=== PATIENT | female | born 1960 | race Caucasian/White ===

== ENCOUNTER → 2018-05-18 12:29 | Outpatient (CLI) | payer OTHER, SELFPAY ==
--- NOTE | 2018-05-18 12:32 | DI.MG.S_ITS ---
BILATERAL DIGITAL SCREENING MAMMOGRAM 3D/2D WITH CAD: 05/18/2018 CLINICAL: Routine screening. Comparison is made to exams dated: 07/23/2014 mammogram, 09/19/2009 mammogram, and 10/31/2006 mammogram - [facility]. There are scattered fibroglandular elements in both breasts. Current study was also evaluated with a Computer Aided Detection (CAD) system. There is possible architectural distortion in the left breast middle depth upper region seen on the mediolateral oblique view only. Finding is best noted on tomographic L MLO slice 25. No other significant masses, calcifications, or other findings are seen in either breast. IMPRESSION: INCOMPLETE: NEEDS ADDITIONAL IMAGING EVALUATION The possible architectural distortion in the left breast is indeterminate. Additional views with possible ultrasound are recommended. This exam was interpreted at Station ID: [id number]. NOTE: For mammograms, a report in lay terms will be sent to the patient. Approximately 15% of breast malignancies will not be visualized mammographically. In the management of a palpable breast mass, a negative mammogram must not discourage biopsy of a clinically suspicious lesion. Electronically Signed By: David Alcaraz M.D. ecl/:05/19/2018 01:52:06 copy to: Nicci Naqvi letter sent: Additional Imaging Needed ACR BI-RADS Category 0: Incomplete 3340F
== END ==
PROVIDERS: PCP Family Medicine
DX: Z12.31 Encounter for screening mammogram for malignant neoplasm of breast (principal); M85.852 Other specified disorders of bone density and structure, left thigh; Z78.0 Asymptomatic menopausal state; Z82.62 Family history of osteoporosis
CPT/HCPCS: 77063; 77067; 77080

== ENCOUNTER → 2018-06-01 08:56 | Outpatient (CLI) | payer OTHER, SELFPAY ==
--- NOTE | 2018-06-01 | DI.MG.S_ITS ---
UNILATERAL LEFT DIGITAL DIAGNOSTIC MAMMOGRAM 3D/2D WITH ADDITIONAL VIEWS: 06/01/2018 CLINICAL: Additional evaluation requested from prior study. Comparison is made to exams dated: 05/18/2018 mammogram, 07/23/2014 mammogram, and 09/19/2009 mammogram - [facility]. There are scattered fibroglandular elements in left breast. There is 0.3 cm equal density asymmetry with an indistinct margin in the left breast middle depth superior region seen on the mediolateral oblique view only. This is less prominent. No other significant masses or calcifications are seen in the breast. IMPRESSION: INCOMPLETE: NEEDS ADDITIONAL IMAGING EVALUATION The 0.3 cm equal density asymmetry in the left breast is indeterminate. An ultrasound is recommended. This exam was interpreted at Station ID: [id number]. NOTE: For mammograms, a report in lay terms will be sent to the patient. Approximately 15% of breast malignancies will not be visualized mammographically. In the management of a palpable breast mass, a negative mammogram must not discourage biopsy of a clinically suspicious lesion. Electronically Signed By: Ketan monterroso/benita:06/01/2018 09:36:58 letter sent: Need Ultrasound ACR BI-RADS Category 0: Incomplete 3340F
--- NOTE | 2018-06-01 08:57 | DI.US.S_ITS ---
LIMITED ULTRASOUND OF LEFT BREAST: 06/01/2018 CLINICAL: Follow up from addtional views. Comparison is made to exams dated: 06/01/2018 mammogram, 05/18/2018 mammogram, and 07/23/2014 mammogram - [facility]. Real-time ultrasound of the left breast upper outer quadrant was performed on the area of interest. No abnormalities were seen sonographically in the left breast. IMPRESSION: NEGATIVE There is no sonographic evidence of malignancy. There is no abnormality seen in the left breast to correspond with the mammography finding in the upper outer quadrant. A 1 year screening mammogram is recommended.(06/02/2019) This exam was interpreted at Station ID: [id number]. Electronically Signed By: Ketan monterroso/benita:06/01/2018 17:24:35 copy to: Nicci Naqvi letter sent: Normal Exam Ultrasound BI-RADS: 1 Negative
== END ==
PROVIDERS: PCP Family Medicine; Visit Provider Family Medicine
DX: R92.8 Other abnormal and inconclusive findings on diagnostic imaging of breast (principal)
CPT/HCPCS: 76642; 77065; G0279

== ENCOUNTER 2018-06-19 08:17 | Day surgery (SDC) | payer OTHER, SELFPAY ==
--- NOTE | 2018-06-19 | PATH_ITS ---
[facility] Accession Number: [id number] . 01 Material submitted: . POLYP AT HEPATIC FLEXURE . 02 Diagnosis: Colon, Polyp at Hepatic Flexure, Biopsy: Colonic mucosa with mild surface hyperplastic-type changes and prominent thickened subepithelial collagen layer. Please see comment. Negative for granulomas, dysplasia and malignancy. MRV/06/21/2018 . 02 Comment: There is mild surface hyperplastic-type changes and additional deeper levels are examined. There is no evidence of dysplasia or serrated lesion. The polyp has a prominent subepithelial collagen layer which is abnormal. Although hyperplastic polyps sometimes show an abnormal subepithelial collagen layer, the appearance in this biopsy raises the consideration of collagenous colitis in the appropriate clinical and endoscopic setting. . 02 Electronically signed: . Priti Lozano MD, Pathologist NPI- [id number] . 01 Gross description: . Received in one formalin-filled container labeled with the patient's name and labeled polyp at hepatic flexure, are two 0.1-0.2 cm portions of tissue, entirely submitted. ([id number]) /FRR . 02 Pathologist provided ICD-10: K63.5 . 02 CPT . 308238 Specimen Comment: A duplicate report has been generated due to demographic updates. Performed at: 01 [facility] [address], [place], [place] [id number] MD Ketan Blandon MD Phone: [phone] Performed at: [address] [facility] [address] [place], [place] [id number] MD Dinesh Lagunas MD Phone: [phone]
[2018-06-19 08:50] VITALS: BP 96/64; PULSE 58; RESP 15; TEMP 36.3; O2SAT 99; BMI 21.6
[2018-06-19] MEDS: SODIUM CHLORIDE 0.9% 1,000 ML 200 ML IV (08:50)
--- NOTE | 2018-06-19 09:15 | P.HP_ITS ---
History of Present Illness Date Patient Seen: 06/19/18 Time Patient Seen: 09:13 Chief complaint: 43951 SCREENING COLONOSCOPY Narrative: 57-year-old female who presents for colorectal screening. She has never had any type of previous examination for such. She denies any recent gastrointestinal symptoms. No nausea, vomiting, abdominal pain, loss of appetite, unexplained weight loss, change in bowel habits, diarrhea, constipation, melena, hematochezia, or bright red blood per rectum. Patient History Medical History No significant past medical history (Acute) Surgical History History of third molar tooth extraction Status post loop electrosurgical excision procedure (LEEP) of cervix Family & Social History Family History: Reviewed 06/19/18 by Roly Greenwood MD Social History: household members spouse,children Tobacco & Substance use: Smoking Status Never smoker alcohol intake current alcohol intake frequency 0-2 drinks per day Meds Home Medications Medication Instructions Recorded Confirmed Type ibuprofen 200 mg PO Q6HP #0 06/15/12 01/03/18 History zoster vaccine live (PF) [Zostavax 0.5 ml SQ X1 #0.5 ml 12/28/16 Rx (PF)] Allergies Allergy/AdvReac Type Severity Reaction Status Date / Time No Known Drug Allergies Allergy Unknown Verified 01/03/18 10:42 Review of Systems Review of Systems All systems reviewed & are unremarkable except as noted in HPI and below Exam Vital Signs (past 8 hours): - 06/19/18 08:50 Temperature 97.3 F L Pulse Rate 58 L Respiratory Rate 15 Blood Pressure 96/64 Pulse Oximetry 99 Oxygen Delivery Method Room Air Narrative Exam Narrative: Well-nourished well-developed thin female in no acute distress resting comfortably on the gurney. Alert oriented x3. Sclera nonicteric Chest clear to auscultation bilaterally with regular rate and rhythm. No murmurs , gallops, rubs Abdomen soft, nondistended, nontender, no masses Extremities show no clubbing, cyanosis, or edema Objective Labs Labs: No recent radiographic or laboratory studies for review Assessment & Plan Plan: Assessment/Plan Narrative: 57-year-old female presenting for colorectal screening. I recommend colonoscopy. Technical details of the procedure were discussed. Risks, benefits, alternatives were explained. Risks including but not limited to sedation, aspiration, bleeding, pain, missed lesion, incomplete examination, need for further radiographic studies, colonic perforation, need for major abdominal surgery, and all attendant risks of major surgery were reviewed in detail. All questions were answered to her satisfaction, and she voiced understanding. Consent was placed on the chart. We will proceed as above.
--- NOTE | 2018-06-19 09:15 | PM.PREOP ---
Pre-operative Note Interval Note Pre-op Check: Yes History & Physical Reviewed by Physician, Yes Exam Performed and Yes History & Physical exam performed today by Physician Changes: No H&P completed within 30 days and has changed as indicated here:: Patient seen and examined today. History and physical examination documented and placed on the chart. Proceed with colonoscopy today as planned. ASA Class (for procedural sedation): I
[2018-06-19] MEDS: MIDAZOLAM 5 MG/5 ML VIAL IV (09:37)
[2018-06-19] MEDS: fentaNYL 250 MCG/5 ML INJ IV (09:38)
--- NOTE | 2018-06-19 09:44 | PM.OP.ENDO ---
Operative Date/Time/Diagnoses Date of procedure: 06/19/18 Time of procedure: 09:44 Pre-op diagnosis: Colorectal screening Post-op diagnosis: other (Colon polyp) Procedure & Clinicians Study performed: 1. Sedation per surgeon 2. Colonoscopy with hot snare polypectomy Same procedure as scheduled: Yes Indications: 57-year-old female requiring colorectal screening by age criteria. Colonoscopy is recommended. Surgeon: Roly Greenwood Procedure Notes SCOAP/Timeout: Yes Procedure in detail: After obtaining informed consent, the patient was brought to the GI suite and placed in the left lateral decubitus position on the examination table. After placement of appropriate monitors, the patient was given incremental doses of Versed and Fentanyl until an appropriate level of sedation was achieved. A time out was held per SCOAP protocol. A digital rectal examination was performed and did not reveal any masses or obstructing lesions. The colonoscope was gently passed into the patient's anus and the entire colon navigated to the level of the cecum with minimal difficulty. Terminal ileum was intubated and noted to be grossly normal. Once in the cecum, the scope was withdrawn being sure to go before and beyond all mucosal folds and prominences and get an excellent examination. The findings are noted above. At the level of the rectal vault, the scope was retroflexed and the internal anal canal was examined. The scope was straightened and air aspirated from the colon. The instrument was removed from the patient's body and the procedure was concluded. The patient was allowed to awaken from sedation without difficulty and taken to the post-anesthesia care unit in good condition. Scope withdrawal time: 12:35 min Sedation minutes: 25 Findings: polyp and other findings (Otherwise normal colon and rectum) Specimen(s): other (Hepatic flexure polyp) Complications: none Recommendations: Colonscopy in 5 years, High fiber diet and Will call with biopsy results Plan for aftercare: 1. Discharged home Follow up: as needed Disposition: PACU
[2018-06-19 09:49] VITALS: BP 82/52; PULSE 57; RESP 10; TEMP 36.2; O2SAT 99
[2018-06-19 09:54] VITALS: BP 84/57; PULSE 53; RESP 12; O2SAT 99
[2018-06-19 09:58] VITALS: BP 86/58; PULSE 61; RESP 13; O2SAT 100
[2018-06-19 10:12] VITALS: BP 94/63; PULSE 52; RESP 10; TEMP 36.4; O2SAT 100
== END 2018-06-19 10:46 | disposition home or self-care (01) ==
PROVIDERS: PCP Family Medicine; Visit Provider Surgery
PROC: 0DJD8ZZ Inspection of Lower Intestinal Tract, Via Natural or Artificial Opening Endoscopic (ICD-10-PCS; CPT 45378; principal; 2018-06-19 09:45)
DX: Z12.11 Encounter for screening for malignant neoplasm of colon (principal); K63.5 Polyp of colon
CPT/HCPCS: 45385; 99152; 99153; J2250; J3010

== ENCOUNTER → 2020-12-25 08:17 | Outpatient (CLI) | payer OTHER, SELFPAY ==
--- NOTE | 2020-12-25 | DI.MG.S_ITS ---
BILATERAL DIGITAL SCREENING MAMMOGRAM 3D/2D WITH CAD: 12/25/2020 CLINICAL: Routine screening. Comparison is made to exams dated: 05/18/2018 mammogram, 07/23/2014 mammogram, and 09/19/2009 mammogram - [facility]. There are scattered fibroglandular elements in both breasts. Current study was also evaluated with a Computer Aided Detection (CAD) system. No significant masses, calcifications, or other findings are seen in either breast. There has been no significant interval change. IMPRESSION: NEGATIVE There is no mammographic evidence of malignancy. A 1 year screening mammogram is recommended. This exam was interpreted at Station ID: [id number]. NOTE: For mammograms, a report in lay terms will be sent to the patient. Approximately 15% of breast malignancies will not be visualized mammographically. In the management of a palpable breast mass, a negative mammogram must not discourage biopsy of a clinically suspicious lesion. Electronically Signed By: Ray Do acr/benita:12/25/2020 10:09:28 letter sent: Normal Exam ACR BI-RADS Category 1: Negative 3341F
== END ==
PROVIDERS: PCP Internal Medicine; Referring Provider Internal Medicine; Visit Provider Internal Medicine
DX: Z12.31 Encounter for screening mammogram for malignant neoplasm of breast (principal)
CPT/HCPCS: 77063; 77067

== ENCOUNTER → 2022-07-24 13:47 | Outpatient (CLI) | payer OTHER, SELFPAY ==
--- NOTE | 2022-07-24 13:48 | DI.MG.S_ITS ---
BILATERAL DIGITAL SCREENING MAMMOGRAM 3D/2D WITH CAD: 07/24/2022 CLINICAL: Routine screening. Comparison is made to exams dated: 12/25/2020 mammogram, 05/18/2018 mammogram, 07/23/2014 mammogram, and 09/19/2009 mammogram - [facility]. There are scattered areas of fibroglandular density in both breasts (category b / 25%-50% glandular tissue). Current study was also evaluated with a Computer Aided Detection (CAD) system. No significant masses, calcifications, or other findings are seen in either breast. There has been no significant interval change. IMPRESSION: NEGATIVE There is no mammographic evidence of malignancy. A 1 year screening mammogram is recommended. Based on the Tyrer Cuzick model (a risk assessment model) the patient's lifetime risk is 7.5% and her 10 year risk is 2.9%. According to the ACR, ACS, and NCCN guidelines, an annual breast MRI exam along with mammogram is recommended if the patient's lifetime risk is 20% or greater. This exam was interpreted at Station ID: [id number]. NOTE: For mammograms, a report in lay terms will be sent to the patient. Approximately 15% of breast malignancies will not be visualized mammographically. In the management of a palpable breast mass, a negative mammogram must not discourage biopsy of a clinically suspicious lesion. Electronically Signed By: Jim hernández/benita:07/26/2022 18:50:52 letter sent: Normal Exam ACR BI-RADS Category 1: Negative 3341F
== END ==
PROVIDERS: PCP Internal Medicine; Referring Provider Internal Medicine; Visit Provider Internal Medicine
DX: Z12.31 Encounter for screening mammogram for malignant neoplasm of breast (principal)
CPT/HCPCS: 77063; 77067

== ENCOUNTER → 2022-12-27 11:53 | Outpatient (CLI) | payer OTHER, SELFPAY ==
--- NOTE | 2022-12-27 | DI.RAD.S_ITS ---
PROCEDURE: XR ANKLE RT MIN 3V INDICATIONS: right achilles pain TECHNIQUE: 3 views of the ankle were acquired. COMPARISON: None. FINDINGS: Bones: No fractures or dislocations. Ankle mortise is normally aligned. No suspicious bony lesions. Soft tissues: No tibiotalar joint effusion. Achilles tendon appears normal. IMPRESSION: No acute fracture. No osseous lesion. If symptoms and/or clinical suspicion for pathology persist, further assessment with repeat, or advanced imaging (e.g., CT, MRI, or bone scan) may be helpful for further assessment. Dictated by: Barry Keenan M.D. on 12/27/2022 at 13:17 Transcribed by: JANNA on 12/27/2022 at 13:17 Approved by: Barry Keenan M.D. on 12/27/2022 at 16:47
== END ==
PROVIDERS: PCP Internal Medicine; Referring Provider Internal Medicine; Visit Provider Internal Medicine
DX: M25.571 Pain in right ankle and joints of right foot (principal)
CPT/HCPCS: 73610

== ENCOUNTER → 2023-09-13 | Outpatient (CLI) | payer OTHER, SELFPAY ==
--- NOTE | 2023-09-13 14:25 | DI.MG.S_ITS ---
BILATERAL DIGITAL SCREENING MAMMOGRAM 3D/2D WITH CAD: 09/13/2023 CLINICAL: Routine. Comparison is made to exams dated: 07/24/2022 mammogram, 12/25/2020 mammogram, and 05/18/2018 mammogram - [facility]. There are scattered areas of fibroglandular density in both breasts (category b / 25%-50% glandular tissue). Current study was also evaluated with a Computer Aided Detection (CAD) system. There is a possible new oval focal asymmetry in the right breast at 7 o'clock anterior depth. No other significant masses, calcifications, or other findings are seen in either breast. IMPRESSION: INCOMPLETE: NEEDS ADDITIONAL IMAGING EVALUATION The possible new oval focal asymmetry in the right breast resembles a cyst, fibroglandular tissue, or a lymph node and is indeterminate. Additional views with possible ultrasound are recommended. Based on the Tyrer Cuzick model (a risk assessment model) the patient's lifetime risk is 7.3% and her 10 year risk is 2.9%. According to the ACR, ACS, and NCCN guidelines, an annual breast MRI exam along with mammogram is recommended if the patient's lifetime risk is 20% or greater. This exam was interpreted at Station ID: [id number]. NOTE: For mammograms, a report in lay terms will be sent to the patient. Approximately 15% of breast malignancies will not be visualized mammographically. In the management of a palpable breast mass, a negative mammogram must not discourage biopsy of a clinically suspicious lesion. Electronically Signed By: Pierre scherer/benita:09/21/2023 15:16:02 letter sent: Additional Imaging Needed ACR BI-RADS Category 0: Incomplete 3340F
== END ==
PROVIDERS: PCP Internal Medicine; Referring Provider Internal Medicine; Visit Provider Internal Medicine
DX: Z12.31 Encounter for screening mammogram for malignant neoplasm of breast (principal); R92.323 Mammographic fibroglandular density, bilateral breasts
CPT/HCPCS: 77063; 77067

== ENCOUNTER → 2023-09-30 09:33 | Outpatient (CLI) | payer OTHER, SELFPAY ==
--- NOTE | 2023-09-30 09:34 | DI.MG.S_ITS ---
UNILATERAL RIGHT DIGITAL DIAGNOSTIC MAMMOGRAM 3D/2D WITH ADDITIONAL VIEWS: 09/30/2023 CLINICAL: Additional evaluation requested from prior study. Comparison is made to exams dated: 09/13/2023 mammogram, 07/24/2022 mammogram, and 12/25/2020 mammogram - [facility]. There are scattered areas of fibroglandular density in the right breast (category b / 25%-50% glandular tissue). The previously described possible oval focal asymmetry in the right breast at 8 o'clock anterior depth is not confirmed in additional views. This is less prominent. No other significant masses or calcifications are seen in the breast. IMPRESSION: INCOMPLETE: NEEDS ADDITIONAL IMAGING EVALUATION The possible oval focal asymmetry in the right breast resembles a cyst, fibroglandular tissue, or a lymph node and is indeterminate. An ultrasound is recommended for further evaluation and is scheduled to immediately follow this examination. Based on the Tyrer Cuzick model (a risk assessment model) the patient's lifetime risk is 7.3% and her 10 year risk is 2.9%. According to the ACR, ACS, and NCCN guidelines, an annual breast MRI exam along with mammogram is recommended if the patient's lifetime risk is 20% or greater. This exam was interpreted at Station ID: [id number]. NOTE: For mammograms, a report in lay terms will be sent to the patient. Approximately 15% of breast malignancies will not be visualized mammographically. In the management of a palpable breast mass, a negative mammogram must not discourage biopsy of a clinically suspicious lesion. Electronically Signed By: Pierre Jon M.D. aty/:09/30/2023 10:10:00 ACR BI-RADS Category 0: Incomplete 3340F
--- NOTE | 2023-09-30 09:35 | DI.US.S_ITS ---
LIMITED ULTRASOUND OF RIGHT BREAST AND AXILLA: 09/30/2023 CLINICAL: Patient returns today to evaluate a focal asymmetry in the right breast. Comparison is made to exams dated: 09/30/2023 mammogram, 09/13/2023 mammogram, 07/24/2022 mammogram, 12/25/2020 mammogram, 06/01/2018 ultrasound, and 06/01/2018 mammogram - [facility]. Color flow and real-time ultrasound of the right breast 8-10 o'clock, and axilla regions were performed. Mcmillan scale images of the real-time examination were reviewed. There is a 0.7 cm x 0.4 cm x 0.7 cm wider than tall oval mass in the right breast at 9 o'clock anterior depth 3 cm from the nipple. This oval mass is hypoechoic with no posterior acoustic shadowing or enhancement. This correlates with mammography findings. Color flow imaging demonstrates that there is no vascularity present. No significant abnormalities were seen sonographically in the right axilla. IMPRESSION: SUSPICIOUS OF MALIGNANCY The 0.7 cm x 0.4 cm x 0.7 cm wider than tall oval solid mass in the right breast is at a low suspicion for malignancy. An ultrasound guided biopsy is recommended. No sonographic abnormalities identified in the axilla. No axillary adenopathy. Findings and recommendations were discussed with the patient by Dr. Mcmillan during today's examination. This exam was interpreted at Station ID: [id number]. Electronically Signed By: Pierre Jon M.D. aty/:09/30/2023 14:49:51 letter sent: Biopsy Required Ultrasound BI-RADS: 4a Low suspicion for malignancy
== END ==
LOC: MAMMO 09:34
PROVIDERS: PCP Internal Medicine; Referring Provider Internal Medicine; Visit Provider Internal Medicine
DX: R92.8 Other abnormal and inconclusive findings on diagnostic imaging of breast (principal); N63.15 Unspecified lump in the right breast, overlapping quadrants; R92.321 Mammographic fibroglandular density, right breast
CPT/HCPCS: 76642; 77065; G0279

== ENCOUNTER → 2023-10-11 08:48 | Outpatient (CLI) | payer OTHER, SELFPAY ==
--- NOTE | 2023-10-11 | PATH_ITS ---
[facility] Accession Number: [id number] No. of containers..01 Tissue . 01 Material submitted: . breast - RIGHT BREAST 9:00 C CM FN MASS . 01 Diagnosis: Right Breast, 9 o'clock, 3 cm FN Mass, Image-Guided Core Biopsies: Benign fibroepithelial lesion, consistent with fibroadenoma, please see microscopic description. Fibrocystic changes and few calcifications associated with benign ducts also present. Negative for in situ and invasive malignancy. MRV 10/14/2023 1530 Local . 01 Comment: As part of ongoing quality assistant, this case is also reviewed by Dr. Marika Stovall, who agrees with the interpretation. . 01 Electronically signed: . Brielle Lemus MD, Pathologist NPI- [id number] . 01 Gross description: . Received is one formalin-filled container labeled with the patient's name labeled right breast 9 o'clock 3 cm FN. The specimen is received with plastic filter and container sample loose in container, and consists of multiple fragments of yellow-hendrickson soft tissue which range in size from 0.1 x 0.1 x 0.1 cm to 1.2 x 0.3 x 0.3 cm. All fragments are totally submitted in cassette A1. Possible collectionn date and time per requisition 10/11/2023 at 0953 hours, total fixation time approximately 17 hours. (DC:[id number]) /AZALIA 10/12/2023 0541 Local . 01 Microscopic: . Microscopic examination of the core biopsies reveals benign ducts and associated fibrotic and sclerosed stroma without significant stromal overgrowth, hypercellularity, or increased mitotic activity. The ductal epithelium shows no atypia. To better evaluate an area where adenosis-like changes are noted, with attenuated glandular epithelium, p63 and myosin immunostains are performed. These immunostains highlight the presence of myoepithelial cell layer, supporting benign process. . . * This test was developed and its performance characteristics determined by [facility]. It has not been cleared or approved by the U.S. Food and Drug Administration. The FDA has determined that such clearance or approval is not necessary. This test is used for clinical purposes. It should not be regarded as investigational or for research. . 01 Pathologist provided ICD-10: N63.10 . 01 CPT . 838500, W02504, R54737 Performed at: 01 [facility] [address], [place], [place] [id number] MD Ketan Blandon MD Phone: [phone]
--- NOTE | 2023-10-11 08:49 | DI.US.S_ITS ---
ULTRASOUND GUIDED BIOPSY RIGHT BREAST WITH MARKING DEVICE INSERTED AND POST DIGITAL MAMMOGRAPHIC IMAGIN10/11/2023 CLINICAL: Right breast mass. PATIENT CONSENT: Risks (minor bleeding, infection, vasovagal reaction and repeat procedure), benefits and alternatives were explained to the patient and written informed consent was obtained. Correlation is made to exams dated: 10/11/2023 mammogram, 09/30/2023 ultrasound, 09/30/2023 mammogram, 07/24/2022 mammogram, 09/13/2023 mammogram, and 12/25/2020 mammogram - [facility]. An ultrasound guided biopsy using real-time ultrasound was performed for the nodule located in the right breast at 9 o'clock posterior depth. This was described on the previous ultrasound report. The skin was prepped in the usual manner. Local anesthetic was administered to the access site. A small incision was made in the breast. The abnormality was approached from the lateral aspect. A biopsy needle was placed adjacent to the abnormality under ultrasound guidance. Once the needle was documented to be in the correct location, four specimens were obtained using a BARD biopsy device. A clip was inserted into the biopsy cavity. A skin adhesive was applied to the access site. Post procedure digital mammographic imaging demonstrates the location device at the targeted area. The specimens were sent to the laboratory for pathological analysis. IMPRESSION: ULTRASOUND GUIDED BIOPSY BENIGN Ultrasound guided biopsy of the nodule in the right breast at 9 o'clock posterior depth was successful with no apparent post procedure complications. Pathology indicates benign fibrocystic changes (FC) and fibroepithelial neoplasm favor fibroadenoma. Pathology results are concordant with imaging findings. Return to annual mammogram screening schedule is recommended. This exam was interpreted at Station ID: [id number]. Kyle finn,aty/:10/17/2023 16:52:12
--- NOTE | 2023-10-11 08:50 | DI.MG.S_ITS ---
UNILATERAL RIGHT DIGITAL DIAGNOSTIC MAMMOGRAM 3D/2D POST-PROCEDURE IMAGING FOR MARKER PLACEMENT: 10/11/2023 CLINICAL: Post clip. Comparison is made to exams dated: 09/30/2023 ultrasound, 09/30/2023 mammogram, 09/13/2023 mammogram, and 07/24/2022 mammogram - [facility]. There are scattered areas of fibroglandular density in the right breast (category b / 25%-50% glandular tissue). There is a marker clip in the appropriate position in the right breast at 9 o'clock posterior depth. This marker clip placement is at the biopsy site. IMPRESSION: POST PROCEDURE MAMMOGRAM FOR MARKER PLACEMENT There was a successful marker clip placement in the right breast posterior depth. Based on the Tyrer Cuzick model (a risk assessment model) the patient's lifetime risk is 7.3% and her 10 year risk is 2.9%. According to the ACR, ACS, and NCCN guidelines, an annual breast MRI exam along with mammogram is recommended if the patient's lifetime risk is 20% or greater. This exam was interpreted at Station ID: [id number]. NOTE: For mammograms, a report in lay terms will be sent to the patient. Approximately 15% of breast malignancies will not be visualized mammographically. In the management of a palpable breast mass, a negative mammogram must not discourage biopsy of a clinically suspicious lesion. Electronically Signed By: Kyle Bellamy M.D. jl/:10/11/2023 11:30:22 ACR BI-RADS Category Post-procedure mammogram for marker placement
== END ==
PROVIDERS: PCP Internal Medicine; Referring Provider Internal Medicine; Visit Provider Internal Medicine
DX: N63.15 Unspecified lump in the right breast, overlapping quadrants (principal); N64.89 Other specified disorders of breast
CPT/HCPCS: 19083; 77065

== ENCOUNTER → 2024-11-01 14:54 | Outpatient (CLI) | payer OTHER, SELFPAY ==
--- NOTE | 2024-11-01 14:57 | DI.MG.S_ITS ---
BILATERAL DIGITAL SCREENING MAMMOGRAM 3D/2D WITH CAD: 11/01/2024 CLINICAL: Routine screening. Comparison is made to exams dated: 09/13/2023 mammogram, 07/24/2022 mammogram, 12/25/2020 mammogram, and 10/11/2023 mammogram - [facility]. The breasts are heterogeneously dense, which may obscure small masses (category c / 51-75% glandular tissue). Current study was also evaluated with a Computer Aided Detection (CAD) system. There is a biopsy clip in the right breast. No significant masses, calcifications, or other findings are seen in either breast. There has been no significant interval change. IMPRESSION: NEGATIVE There is no mammographic evidence of malignancy. A 1 year screening mammogram is recommended. Based on the Tyrer Cuzick model (a risk assessment model) the patient's lifetime risk is 10.7% and her 10 year risk is 4.5%. According to the ACR, ACS, and NCCN guidelines, an annual breast MRI exam along with mammogram is recommended if the patient's lifetime risk is 20% or greater. This exam was interpreted at Station ID: [id number]. NOTE: For mammograms, a report in lay terms will be sent to the patient. Approximately 15% of breast malignancies will not be visualized mammographically. In the management of a palpable breast mass, a negative mammogram must not discourage biopsy of a clinically suspicious lesion. Electronically Signed By: Jim [email or web address]/[email or web address]:11/02/2024 10:10:59 letter sent: Normal Exam ACR BI-RADS Category 1: Negative
== END ==
PROVIDERS: PCP Registered Nurse; Referring Provider Registered Nurse; Visit Provider Registered Nurse
DX: Z12.31 Encounter for screening mammogram for malignant neoplasm of breast (principal); R92.333 Mammographic heterogeneous density, bilateral breasts
CPT/HCPCS: 77063; 77067